=== PATIENT | female | born 1985 | race Asian ===

== ENCOUNTER 2020-10-03 22:31 | Observation (INO) | payer OTHER ==
[~2020-10-03] VITALS: Ht 152.4 cm; Wt 69.9 kg
[2020-10-03] MEDS ORDERED: TEMAZEPAM 7.5 MG CAPSULE PO PRN (23:30)
[2020-10-03] MEDS ORDERED: ACETAMINOPHEN 325 MG TABLET PO PRN (23:30)
== END 2020-10-04 09:55 | disposition home or self-care (01) ==
LOC: SPU 22:31
PROVIDERS: ADMIT Specialist; ATTEND Specialist
DX: O62.9 Abnormality of forces of labor, unspecified (principal); Z3A.31 31 weeks gestation of pregnancy
CPT/HCPCS: G0378 ×2

== ENCOUNTER 2020-11-14 22:10 | Observation (INO) | payer OTHER | END 2020-11-14 23:40 | disposition home or self-care (01) | LOC: SPU 22:10 | PROVIDERS: ADMIT Specialist; ATTEND Specialist | DX: O26.893 Other specified pregnancy related conditions, third trimester (principal); R10.30 Lower abdominal pain, unspecified; Z3A.37 37 weeks gestation of pregnancy | CPT/HCPCS: 81002; G0378 ==

== ENCOUNTER 2020-11-19 01:30 | Observation (INO) | payer OTHER ==
[~2020-11-19] VITALS: Ht 152.4 cm; Wt 74.8 kg
== END 2020-11-19 03:25 | disposition home or self-care (01) ==
LOC: SPU 01:30
PROVIDERS: ADMIT Specialist; ATTEND Specialist
DX: O62.9 Abnormality of forces of labor, unspecified (principal); Z3A.38 38 weeks gestation of pregnancy
CPT/HCPCS: G0378

== ENCOUNTER 2020-11-24 11:52 | Observation (INO) | payer OTHER ==
[~2020-11-24] VITALS: Ht 152.4 cm; Wt 76.2 kg
== END 2020-11-24 13:25 | disposition home or self-care (01) ==
LOC: SPU 11:52
PROVIDERS: ADMIT Specialist; ATTEND Specialist
DX: O62.9 Abnormality of forces of labor, unspecified (principal); Z3A.38 38 weeks gestation of pregnancy
CPT/HCPCS: 81002; G0378

== ENCOUNTER 2020-12-03 18:26 | Inpatient (IN) | payer OTHER, SELFPAY ==
[~2020-12-03] VITALS: Ht 152.4 cm; Wt 76.2 kg
[2020-12-03] MEDS ORDERED: OXYTOCIN/0.9 % SODIUM CHLORIDE 1,000 ML IV SCH (18:45)
[2020-12-03] MEDS ORDERED: LR 1,000 ML IV ONE (18:45)
[2020-12-03] MEDS ORDERED: LR 1,000 ML IV SCH (18:45)
[2020-12-03 19:22] LABS: HEMATOCRIT 38.6 % (36-48); HEMOGLOBIN 12.9 g/dL (12.0-16.0); MEAN CORPUSCULAR HEMOGLOBIN 31 pg (27-31); MEAN CORPUSCULAR HGB CONC 34 % (32-36); MEAN CORPUSCULAR VOLUME 92 fL (79.0-98.0); PLATELET COUNT (AUTO) 240 K/uL (130-430); RED BLOOD CELL COUNT(AUTO) 4.19 MIL/uL (4.2-6.2); RED CELL DISTRIBUTION WIDTH 13.7 % (9.0-15.0); WHITE BLOOD COUNT (AUTO) 12.1 K/uL (4.8-10.8)
[2020-12-03 20:45] LABS: BAND % (MANUAL) 12 % (0-6); BASOPHILS % (MANUAL) 0 % (0-2); EOSINOPHILS % (MANUAL) 1 % (0-7); LYMPHOCYTES % (MANUAL) 8 % (20-46); MONOCYTES % (MANUAL) 3 % (0-11)
[2020-12-03] MEDS ORDERED: fentaNYL CITRATE/PF 100 MCG/2 ML AMP ONE (21:54)
[2020-12-03] MEDS ORDERED: FENT2mCg/mL-ROPIVA0.2%/NS EPID 200 ML EP SCH (21:54)
[2020-12-03] MEDS ORDERED: ROPIVACAINE HCL/PF 0.2% 200 ML ONE (21:55)
[2020-12-04 04:54] VITALS: BP_SYST 119
[2020-12-04] MEDS ORDERED: DERMOPLAST SPRAY TP ONE (10:26)
[2020-12-04] MEDS ORDERED: WITCH HAZEL LEAF 1 MED.PAD MED.PAD TP ONE (10:26)
[2020-12-04] MEDS ORDERED: RHO(D) IMMUNE GLOBULIN/MALTOSE 1500 UNITS/1.3 ML (WINHRO) IM PRN (12:30)
[2020-12-04] MEDS ORDERED: OXYCODONE/ACETAMINOPHEN 5-325 TABLET PO PRN ×2 (12:30)
[2020-12-04] MEDS ORDERED: IBUPROFEN 600 MG TABLET PO ONE (12:30)
[2020-12-04] MEDS ORDERED: DOCUSATE SODIUM 100 MG CAPSULE PO ONE (12:30)
[2020-12-04] MEDS ORDERED: WITCH HAZEL LEAF 1 MED.PAD MED.PAD TP PRN (12:30)
[2020-12-04] MEDS ORDERED: DERMOPLAST SPRAY TP PRN (12:30)
[2020-12-04] MEDS ORDERED: HYDROCORTISONE 0.5% CREAM 28.4 GM CREAM.GM. TP PRN (12:30)
[2020-12-04] MEDS ORDERED: DIPH-TET-PERTUS Vaccine 0.5 ML VIAL (ADACEL) I.M. PRN (12:30)
[2020-12-04] MEDS ORDERED: LANOLIN 7 GM OINT. TP PRN (12:30)
[2020-12-04] MEDS ORDERED: HYDROcodone/ACETAMIN 5-325 MG TAB (NORCO/ VICODIN) PO PRN (12:30)
[2020-12-04] MEDS ORDERED: OXYTOCIN/0.9 % SODIUM CHLORIDE 1,000 ML IV SCH (12:30)
[2020-12-04] MEDS ORDERED: ANUSOL 1 EA SUPP.RECT (PREPARATION H) RC PRN (12:30)
[2020-12-04] MEDS ORDERED: OXYTOCIN/0.9 % SODIUM CHLORIDE 1,000 ML IV ONE (12:30)
[2020-12-04] MEDS ORDERED: MEASLES,MUMPS&RUBELLA VACC/PF 12500 UNIT/0.5 ML VIAL SUBQ PRN (12:30)
[2020-12-04] MEDS: IBUPROFEN 600 MG TABLET PO SCH ×2 (12:40→17:57)
[2020-12-04] MEDS ORDERED: IBUPROFEN 600 MG TABLET ONE (12:43)
[2020-12-04] MEDS ORDERED: ACETAMINOPHEN 500 MG TABLET ONE (14:59)
[2020-12-04] MEDS ORDERED: ACETAMINOPHEN 500 MG TABLET PO ONE (15:45)
[2020-12-04] MEDS ORDERED: ACETAMINOPHEN 500 MG TABLET PO SCH (21:00)
[2020-12-04] MEDS ORDERED: TEMAZEPAM 15 MG CAPSULE PO PRN (21:00)
[2020-12-04] MEDS ORDERED: SENNOSIDES/DOCUSATE SODIUM 1 TAB TABLET(SENOKOT-S) PO SCH (21:00)
[2020-12-05] MEDS: IBUPROFEN 600 MG TABLET PO SCH ×2 (00:08→05:48)
[2020-12-05 07:45] LABS: BASOPHILS % (AUTO) 0.4 % (0.0-2.0); EOSINOPHILS # (AUTO) 0.2 K/uL (0.0-0.4); EOSINOPHILS % (AUTO) 1.9 % (0.0-4.0); HEMATOCRIT 32.9 % (36-48); HEMOGLOBIN 11.1 g/dL (12.0-16.0); LYMPHOCYTES % (AUTO) 17.4 % (20.5-51.5); MEAN CORPUSCULAR HEMOGLOBIN 31 pg (27-31); MEAN CORPUSCULAR HGB CONC 34 % (32-36); MEAN CORPUSCULAR VOLUME 93 fL (79.0-98.0); MONOCYTES # (AUTO) 0.7 K/uL (0.0-1.0); MONOCYTES % (AUTO) 6.4 % (1.7-9.3); NEUTROPHILS # (AUTO) 8.5 K/uL (1.8-7.7); NEUTROPHILS % (AUTO) 73.9 % (40.0-70.0); PLATELET COUNT (AUTO) 189 K/uL (130-430); RED BLOOD CELL COUNT(AUTO) 3.55 MIL/uL (4.2-6.2); RED CELL DISTRIBUTION WIDTH 13.7 % (9.0-15.0); WHITE BLOOD COUNT (AUTO) 11.5 K/uL (4.8-10.8)
[2020-12-05] MEDS ORDERED: LIGHT MINERAL OIL 10 ML VIAL MC ONE (08:22)
[2020-12-05] MEDS ORDERED: DOCUSATE SODIUM 100 MG CAPSULE PO SCH (09:00)
== END 2020-12-05 16:40 | disposition home or self-care (01) | DRG 806 ==
LOC: SPU 18:26
PROVIDERS: ADMIT Specialist; ATTEND Specialist
PROC: 10E0XZZ Delivery of Products of Conception, External Approach (ICD-10-PCS; principal; 2020-12-03)
PROC: 3E0R3BZ Introduction of Anesthetic Agent into Spinal Canal, Percutaneous Approach (ICD-10-PCS; 2020-12-03)
PROC: 00HU33Z Insertion of Infusion Device into Spinal Canal, Percutaneous Approach (ICD-10-PCS; 2020-12-03)
PROC: 0UQGXZZ Repair Vagina, External Approach (ICD-10-PCS; 2020-12-03)
DX: O69.81X0 Labor and delivery complicated by cord around neck, without compression, not applicable or unspecified (principal); O71.4 Obstetric high vaginal laceration alone; Z37.0 Single live birth; Z3A.40 40 weeks gestation of pregnancy; Z20.822 Contact with and (suspected) exposure to COVID-19
CPT/HCPCS: 36415; 81002; 85007; 85025; 85027; 86592; 86886; 86900; 86901; 94760; J2590; J3010

== ENCOUNTER 2022-03-17 08:56 | Outpatient (CLI) | payer OTHER ==
[2022-03-17 09:55] LABS: BASOPHILS # (AUTO) 0.1 K/uL (0.0-0.2); BASOPHILS % (AUTO) 0.9 % (0.0-2.0); EOSINOPHILS # (AUTO) 1.6 K/uL (0.0-0.4); EOSINOPHILS % (AUTO) 23.6 % (0.0-4.0); HEMATOCRIT 44.8 % (36-48); LYMPHOCYTES # (AUTO) 1.6 K/uL (1.0-5.5); LYMPHOCYTES % (AUTO) 23.4 % (20.5-51.5); MEAN CORPUSCULAR HEMOGLOBIN 30 pg (27-31); MEAN CORPUSCULAR HGB CONC 33 % (32-36); MEAN CORPUSCULAR VOLUME 89 fL (79.0-98.0); MONOCYTES # (AUTO) 0.4 K/uL (0.0-1.0); MONOCYTES % (AUTO) 5.1 % (1.7-9.3); NEUTROPHILS # (AUTO) 3.3 K/uL (1.8-7.7); PLATELET COUNT (AUTO) 262 K/uL (130-430); RED BLOOD CELL COUNT(AUTO) 5.02 MIL/uL (4.2-6.2); RED CELL DISTRIBUTION WIDTH 12.9 % (9.0-15.0)
[2022-03-17 09:56] LABS: BILIRUBIN,URINE NEGATIVE (NEGATIVE); BLOOD, URINE NEGATIVE (NEGATIVE); CLARITY/URINE CLEAR (CLEAR); COLOR,URINE YELLOW (YELLOW); GLUCOSE,URINE NEGATIVE (NEGATIVE); KETONES,URINE 1+ (NEGATIVE); LEUKOCYTE ESTERASE ,URINE NEGATIVE (NEGATIVE); NITRITE, URINE NEGATIVE (NEGATIVE); PROTEIN URINE NEGATIVE (NEGATIVE); UROBILINOGEN,URINE 0.2 (0.2-1.0)
[2022-03-17 10:29] LABS: ALBUMIN 4.5 g/dL (3.4-4.8); CALCIUM 8.6 mg/dL (8.4-11.0); CREATININE 1.02 mg/dL (0.55-1.30); THYROID STIMULATING HORMONE 2.5 uIu/mL (0.34-4.82); TOTAL BILIRUBIN 0.7 mg/dL (0.0-1.0)
[2022-03-19 03:06] LABS: HEPATITIS C VIRUS AB 0.1 s/co ratio (0.0-0.9)
== END 2022-03-17 16:07 | disposition home or self-care (01) ==
LOC: SLB 08:56
PROVIDERS: ATTEND Preventive Medicine Preventive Medicine/Occupational Environmental Medicine
DX: Z00.00 Encounter for general adult medical examination without abnormal findings (principal); Z11.59 Encounter for screening for other viral diseases; Z13.6 Encounter for screening for cardiovascular disorders
CPT/HCPCS: 36415; 80053; 80061; 81003; 84443; 85025; 86803

== ENCOUNTER 2023-01-07 09:21 | Outpatient (CLI) | payer OTHER ==
[2023-01-07 10:44] LABS: CALCIUM 8.6 mg/dL (8.4-11.0); CREATININE 0.82 mg/dL (0.55-1.30); TOTAL BILIRUBIN 0.7 mg/dL (0.0-1.0); TOTAL PROTEIN, SERUM 6.9 g/dL (6.4-8.3)
== END 2023-01-07 17:30 | disposition home or self-care (01) ==
LOC: SLB 09:21
PROVIDERS: ATTEND Nurse Practitioner Acute Care
DX: R94.4 Abnormal results of kidney function studies (principal)
CPT/HCPCS: 36415; 80053